=== PATIENT | female | born 1960 | race Caucasian/White ===

== ENCOUNTER 2017-06-09 03:29 | Emergency (ER) | payer MEDICAID ==
[~2017-06-09] VITALS: Ht 157.5 cm; Wt 70.0 kg
[2017-06-09] MEDS ORDERED: LISI1TAB13 PO (04:25)
[2017-06-09] MEDS ORDERED: ATOR20TA65 PO (04:25)
[2017-06-09] MEDS ORDERED: MORPHINE SULFATE 4 MG/ML CPJ (NOT FOR IM USE) IV STA (06:36)
[2017-06-09] MEDS ORDERED: ONDANSETRON HCL 4MG/2ML VIAL IV STA (06:36)
[2017-06-09] MEDS ORDERED: SODIUM CHLORIDE 0.9% 1,000 ML IV ONE (06:36)
[2017-06-09 06:46] LABS: BASOPHILS % 0.5 % (0.0-2.0); EOSINOPHILS % 0.3 % (0.0-5.0); HEMATOCRIT. 40.9 % (36.0-48.0); HEMOGLOBIN. 14.1 g/dL (12.0-16.0); LYMPHOCYTES % 25.6 % (20.0-50.0); MEAN CORPUSCULAR HEMOGLOBIN 30.7 pg (28.0-32.0); MEAN CORPUSCULAR VOLUME 89.1 fL (81.0-99.0); MONOCYTES % 6.8 % (2.0-8.0); NEUTROPHILS % 66.8 % (40.0-76.0); PLATELET 266 x1000/uL (130-400); RED BLOOD CELL COUNT 4.59 mill/uL (4.2-5.4); RED CELL DISTRIBUTION WIDTH 13.5 % (11.6-14.6)
[2017-06-09 06:56] LABS: PROTHROMBIN TIME 10.2 sec (9.4-11.6)
[2017-06-09 07:10] LABS: CARBON DIOXIDE 27 mEq/L (21-32); CHLORIDE 99 mEq/L (98-107)
[2017-06-09 07:57] LABS: CLARITY URINE CLEAR (CLEAR); COLOR URINE YELLOW (YELLOW); GLUCOSE URINE NEGATIVE (NEGATIVE); KETONES URINE NEGATIVE (NEGATIVE); LEUKOCYTE ESTERASE URINE NEGATIVE (NEGATIVE); NITRITE URINE NEGATIVE (NEGATIVE); OCCULT BLOOD URINE NEGATIVE (NEGATIVE); PROTEIN URINE NEGATIVE (NEGATIVE); SPECIFIC GRAVITY URINE 1.009 (1.005-1.030); UROBILINOGEN URINE 0.2 E.U./dL (0.2-1.0)
[2017-06-09] MEDS ORDERED: HYDROCODONE/ACETAMINOPHEN 5/325MG TABLET PO ONE (08:30)
[2017-06-09] MEDS ORDERED: KETOROLAC 60MG/2ML VIAL IM ONE (08:30)
[2017-06-09 08:44] VITALS: BP 149/73
[2017-08-10] MEDS ORDERED: NAPR375T5 PO (11:14)
[2017-08-11] MEDS ORDERED: AMLO10TA80 PO (09:10)
[2017-08-11] MEDS ORDERED: CLAR10 PO (09:10)
== END 2017-06-09 08:47 | disposition home or self-care (01) ==
LOC: ER 07:46
DX: M54.41 Lumbago with sciatica, right side (principal); I11.9 Hypertensive heart disease without heart failure
CPT/HCPCS: 36415; 80053; 81003; 83690; 85025; 85610; 96361; 96372; 96374; 96375; 99284; J1885; J2270; J2405; J7030; Z7610

== ENCOUNTER 2020-11-13 23:33 | Emergency (ER) | payer OTHER ==
[~2020-11-13] VITALS: Ht 162.6 cm; Wt 82.0 kg
[~2020-11-13 23:33] MED LIST: AMLO10TA80 PO; ATOR20TA65 PO; CLAR10 PO; LISI1TAB13 PO; NAPR375T5 PO
[2020-11-14] MEDS ORDERED: SODIUM CHLORIDE 0.9% 1,000 ML IV ONE
[2020-11-14] MEDS ORDERED: NALOXONE HCL 0.4 MG/ML 1ML VIAL IV PRN
[2020-11-14 00:30] LABS: BASOPHILS % 0.2 % (0.0-2.0); EOSINOPHILS % 0.3 % (0.0-5.0); HEMATOCRIT. 43.6 % (36.0-48.0); HEMOGLOBIN. 14.7 g/dL (12.0-16.0); LYMPHOCYTES % 51.7 % (20.0-50.0); MEAN CORPUSCULAR HEMOGLOBIN 30.7 pg (28.0-32.0); MEAN PLATELET VOLUME 7.6 fl (7.4-10.4); MONOCYTES % 5.8 % (2.0-8.0); PLATELET 356 x1000/uL (130-400); RED CELL DISTRIBUTION WIDTH 13.4 % (11.6-14.6)
[2020-11-14 00:34] LABS: CHLORIDE 109 mEq/L (98-107)
[2020-11-14 00:48] LABS: ETHANOL BLOOD 423 mg/dL
[2020-11-14 01:53] LABS: D-DIMER 0.47 mg/L FEU (<0.50); PARTIAL THROMBOPLASTIN TIME 27.1 sec (23.4-31.0); PROTHROMBIN TIME 10.3 sec (9.6-11.0)
[2020-11-14] MEDS ORDERED: ASPIRIN 325MG EC TABLET PO SCH (02:30)
[2020-11-14 07:18] VITALS: BP 140/69
[2020-11-14] MEDS ORDERED: FOLIC ACID 1 MG, THIAMINE HCL 100 MG, MVI, ADULT NO.1 10 ML in DEXTROSE 5% WATER 1,000 ML IV ONE ×4 (09:30)
[2020-11-14] MEDS ORDERED: LORAZEPAM 2MG/ML CPJ IV PRN (09:30)
[2020-11-14] MEDS ORDERED: ONDANSETRON HCL 4MG/2ML INJ IV PRN (09:30)
[2020-11-14] MEDS ORDERED: CHLORDIAZEPOXIDE 25MG CAPSULE PO SCH (14:00)
== END 2020-11-14 10:25 | disposition left against medical advice (07) ==
LOC: ER 23:33 → EDUNIT# 23:33 → CANRESERV 11-14 08:10 → ENRESERV 11-14 08:10 → CANBEDREQ 11-14 10:19 → ER 11-14 10:25
DX: F10.229 Alcohol dependence with intoxication, unspecified (principal); R41.82 Altered mental status, unspecified; I10 Essential (primary) hypertension; Y90.8 Blood alcohol level of 240 mg/100 ml or more; Z86.19 Personal history of other infectious and parasitic diseases
CPT/HCPCS: 36415; 70450; 71045; 71275; 80053; 80307; 80320; 80329; 82962; 84443; 85025; 85379; 85610; 85730; 93005; 96360; 96361; 99285; J3411; J3490; J7030; J7070; G0480

== ENCOUNTER 2022-03-23 07:20 | Emergency (ER) | payer MEDICAID ==
[~2022-03-23] VITALS: Ht 157.5 cm; Wt 86.0 kg
[2022-03-23] MEDS ORDERED: IBUPROFEN 800 MG/8 ML VIAL IV ONE (08:00)
[2022-03-23] MEDS ORDERED: AMOX1TAB16 PO (08:29)
[2022-03-23] MEDS ORDERED: OFLO5DRO4 EACH EAR (08:29)
[2022-03-23] MEDS ORDERED: IBUPROFEN 800MG TABLET PO ONE (08:30)
[2022-03-23 08:53] VITALS: BP 191/102
== END 2022-03-23 11:14 | disposition home or self-care (01) ==
LOC: ER 10:12
DX: H60.93 Unspecified otitis externa, bilateral (principal); I10 Essential (primary) hypertension
CPT/HCPCS: 99283; J1741

== ENCOUNTER 2023-07-29 09:25 | Emergency (ER) | payer MEDICAID ==
[~2023-07-29] VITALS: Ht 162.6 cm; Wt 90.0 kg
[~2023-07-29 09:25] MED LIST changes: +AMOX1TAB16 PO; +OFLO5DRO4 EACH EAR
[2023-07-29 09:31] VITALS: O2SAT 96
[2023-07-29] MEDS ORDERED: KETOROLAC 30MG/ML VIAL IM ONE (10:15)
[2023-07-29] MEDS ORDERED: LIDOCAINE 5% PATCH TOP SCH (10:15)
[2023-07-29] MEDS ORDERED: HYDROCODONE/ACETAMINOPHEN 5/325MG TABLET PO ONE ×2 (10:15→11:30)
[2023-07-29] MEDS ORDERED: ACET-2708 MT (12:13)
[2023-07-29] MEDS ORDERED: IBUP-2028 MT (12:13)
[2023-07-29] MEDS ORDERED: LIDO700A15 TP (12:13)
[2023-07-29 13:01] VITALS: BP 111/78; PULSE 83; RESP 16; TEMP 98.5
== END 2023-07-29 13:02 | disposition home or self-care (01) ==
LOC: ER 09:25
DX: M54.31 Sciatica, right side (principal); E78.00 Pure hypercholesterolemia, unspecified; I10 Essential (primary) hypertension
CPT/HCPCS: 96372; 99283; J1885; Z7610

== ENCOUNTER 2024-01-03 16:30 | Emergency (ER) | payer MEDICAID ==
[~2024-01-03] VITALS: Ht 152.4 cm; Wt 97.1 kg
[~2024-01-03 16:30] MED LIST changes: +ACET-2708 MT; +IBUP-2028 MT; +LIDO700A15 TP
[2024-01-03 17:31] VITALS: O2SAT 98
[2024-01-03] MEDS: IBUPROFEN 600MG TABLET PO NR (18:15)
[2024-01-03] MEDS: ACETAMINOPHEN 500MG TABLET PO NR (18:15)
[2024-01-03] MEDS ORDERED: ACETAMINOPHEN 500MG TABLET PO ONE (18:15)
[2024-01-03] MEDS ORDERED: IBUPROFEN 600MG TABLET PO ONE (18:15)
[2024-01-03 20:29] VITALS: BP 137/82; PULSE 84; RESP 20; TEMP 98.7
== END 2024-01-03 21:16 | disposition home or self-care (01) ==
LOC: ER 16:39
DX: S82.831A Other fracture of upper and lower end of right fibula, initial encounter for closed fracture (principal); E78.00 Pure hypercholesterolemia, unspecified; I10 Essential (primary) hypertension; Z98.890 Other specified postprocedural states; Z79.899 Other long term (current) drug therapy; X58.XXXA Exposure to other specified factors, initial encounter; Y93.89 Activity, other specified; Y92.89 Other specified places as the place of occurrence of the external cause; Y99.8 Other external cause status
CPT/HCPCS: 73590; 73610; 73630; 29515; 99284; Z7610

== ENCOUNTER 2024-11-04 12:09 | Emergency (ER) | payer MEDICAID, OTHER ==
[~2024-11-04] VITALS: Ht 157.5 cm; Wt 101.2 kg
[~2024-11-04 12:09] MED LIST changes: +NAPR-1494 PO; -NAPR375T5 PO
[2024-11-04 12:21] VITALS: O2SAT 99
[2024-11-04] MEDS: IOHEXOL-350 100 ML BOTTLE ONE (12:52)
[2024-11-04 12:55] VITALS: BP 177/98; PULSE 80; RESP 14; TEMP 36.8; O2SAT 99
[2024-11-04 13:14] LABS: BASOPHILS % 0.5 % (0.0-2.0); HEMATOCRIT. 40.1 % (36.0-48.0); HEMOGLOBIN. 13.6 g/dL (12.0-16.0); MEAN CORPUSCULAR HEMOGLOBIN 31.5 pg (28.0-32.0); MEAN CORPUSCULAR VOLUME 92.8 fL (81.0-99.0); MEAN PLATELET VOLUME 7.9 fl (7.4-10.4); MONOCYTES % 6.2 % (2.0-8.0); NEUTROPHILS % 55.3 % (40.0-76.0); PLATELET 298 x1000/uL (130-400); RED BLOOD CELL COUNT 4.32 mill/uL (4.2-5.4); RED CELL DISTRIBUTION WIDTH 13.9 % (11.6-14.6)
[2024-11-04 13:19] LABS: CHLORIDE 105 mEq/L (98-107); POTASSIUM 5.3 mEq/L (3.5-5.1); SODIUM 139 mEq/L (136-145)
[2024-11-04 13:20] LABS: CALCIUM 8.7 mg/dL (8.7-10.4); CARBON DIOXIDE 28 mEq/L (21-32)
[2024-11-04 13:23] LABS: INR 0.9; PROTHROMBIN TIME 10.6 sec (9.6-11.0)
[2024-11-04 13:25] LABS: CREATININE 0.6 mg/dL (0.6-1.0); GLUCOSE 102 mg/dL (70-105); UREA NITROGEN BLOOD 8 mg/dL (9-23)
[2024-11-04 13:38] LABS: ETHANOL BLOOD < 10 mg/dL (<10); TROPONIN I HIGH SENSITIVITY < 4 ng/L (3.0-34)
[2024-11-04] MEDS ORDERED: VALA100044 MT (14:15)
[2024-11-04] MEDS ORDERED: P20 MT (14:15)
[2024-11-04 14:40] LABS: CLARITY URINE CLEAR (CLEAR); COLOR URINE YELLOW (YELLOW); GLUCOSE URINE NEGATIVE (NEGATIVE); KETONES URINE NEGATIVE (NEGATIVE); LEUKOCYTE ESTERASE URINE NEGATIVE (NEGATIVE); NITRITE URINE NEGATIVE (NEGATIVE); OCCULT BLOOD URINE NEGATIVE (NEGATIVE); PH URINE 8.5 (4.5-8.0); PROTEIN URINE NEGATIVE (NEGATIVE); SPECIFIC GRAVITY URINE 1.034 (1.005-1.030); UROBILINOGEN URINE 0.2 E.U./dL (0.2-1.0)
[2024-11-04 14:47] LABS: *AMPHETAMINES SCREEN URINE NEGATIVE (NEGATIVE); *BENZODIAZEPINES SCREEN URINE NEGATIVE (NEGATIVE)
[2024-11-04 14:48] LABS: *BARBITURATES SCREEN URINE NEGATIVE (NEGATIVE); *COCAINE SCREEN URINE NEGATIVE (NEGATIVE); CANNABINOID URINE SCREEN NEGATIVE (NEGATIVE); ECSTASY MDMA SCREEN URINE NEGATIVE (NEGATIVE); METHADONE URINE SCREEN NEGATIVE (NEGATIVE); OPIATES URINE SCREEN NEGATIVE (NEGATIVE); PHENCYCLIDINE URINE SCREEN NEGATIVE (NEGATIVE)
== END 2024-11-04 14:33 | disposition home or self-care (01) ==
LOC: ER 12:09 → CANBEDREQ 14:28 → ER 14:33
DX: G51.0 Bell's palsy (principal); E78.00 Pure hypercholesterolemia, unspecified; I10 Essential (primary) hypertension; Z79.899 Other long term (current) drug therapy; F10.20 Alcohol dependence, uncomplicated
CPT/HCPCS: 80305; 80048; 81003; 80320; 82962; 83880; 85025; 85610; 84484; 36415; 70496; 70498; 70450; 93005; 99285; Q9967; G0480

== ENCOUNTER 2025-03-28 15:29 | Emergency (ER) | payer MEDICAID ==
[~2025-03-28] VITALS: Ht 157.5 cm; Wt 99.0 kg
[~2025-03-28 15:29] MED LIST changes: +LIDO-53 TP; -LIDO700A15 TP; +P20 MT; +VALA100044 MT
[2025-03-28 15:33] VITALS: TEMP 36.8; O2SAT 97
[2025-03-28] MEDS: KETOROLAC 15MG/ML VIAL IM ONE (17:13)
[2025-03-28] MEDS: CYCLOBENZAPRINE 10MG TABLET PO ONE (17:14)
[2025-03-28] MEDS: LIDOCAINE 5% PATCH TOP SCH (17:14)
[2025-03-28] MEDS ORDERED: NAPR-1176 MT (18:02)
[2025-03-28] MEDS ORDERED: CYCL5TAB3 MT (18:02)
[2025-03-28] MEDS ORDERED: LIDO-53 TP (18:02)
[2025-03-28 18:21] VITALS: BP 158/90; PULSE 70; RESP 18; O2SAT 100
== END 2025-03-28 19:33 | disposition home or self-care (01) ==
LOC: ER 15:29
DX: M54.32 Sciatica, left side (principal); E78.00 Pure hypercholesterolemia, unspecified; I10 Essential (primary) hypertension; M51.372 Other intervertebral disc degeneration, lumbosacral region with discogenic back pain and lower extremity pain; Z79.1 Long term (current) use of non-steroidal anti-inflammatories (NSAID); Z79.624 Long term (current) use of inhibitors of nucleotide synthesis; Z79.899 Other long term (current) drug therapy
CPT/HCPCS: 99283; 96372; J1885